=== PATIENT | female | born 2000 | race African-American/Black ===

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

== ENCOUNTER 2019-05-04 01:02 | Emergency (ER) | payer BC ==
[~2019-05-04] VITALS: Ht 172.7 cm; Wt 88.5 kg
--- NOTE | 2019-05-04 01:18 | NUR ---
PT BIB MOM. AAOX4. AMBULATORY. PT C/O CHEST PAIN SHARP 12/12. PER PATIENT "I FEEL ANXIOUS" PT PLACED ON PRINCIPAL CONSULTANT AND PULSE OX. BREATHING EVEN AND UNLABORED. NO ACUTE DISTRESS NOTED.
--- NOTE | 2019-05-04 01:36 | NUR ---
PT IN BED CONNECTED TO CONTINIOUS MONITOR AND PULSE OX. CHEST PAIN LEVEL 0/10.
--- NOTE | 2019-05-04 02:01 | NUR ---
Patient discharged to home in stable condition. Written and verbal after care instructions given. Patient verbalizes understanding of instruction. PT ambulatory with a steady gait.
[2019-05-04 02:02] VITALS: BP 142/62
== END 2019-05-04 02:10 | disposition home or self-care (01) ==
LOC: ER 01:06
DX: F41.9 Anxiety disorder, unspecified (principal); J45.909 Unspecified asthma, uncomplicated; Z79.899 Other long term (current) drug therapy

== ENCOUNTER 2019-05-23 09:12 | Emergency (ER) | payer BC ==
[~2019-05-23] VITALS: Ht 172.7 cm; Wt 88.9 kg
--- NOTE | 2019-05-23 09:20 | NUR ---
bibmother, c/o chest sharp pain since yesterday non radiating, cough x 4 days. Patient a/ox4, breathing even and unlabored, no sob noted, needs attended. Dr. Jones at bedside for eval. Patient changed into gown, and attached to the classroom monitor.
--- NOTE | 2019-05-23 09:40 | NUR ---
SENIOR PHP SOFTWARE DEVELOPER AT BEDSIDE FOR XRAY.
[2019-05-23 10:16] VITALS: BP 147/90
--- NOTE | 2019-05-23 10:16 | NUR ---
Patient discharged to home in stable condition. Written and verbal after care instructions given. Patient verbalizes understanding of instruction.
== END 2019-05-23 10:16 | disposition home or self-care (01) ==
LOC: ER 09:16
DX: R07.89 Other chest pain (principal); J45.909 Unspecified asthma, uncomplicated; F41.9 Anxiety disorder, unspecified; Z79.899 Other long term (current) drug therapy
CPT/HCPCS: 71045-TC

== ENCOUNTER 2019-09-21 21:03 | Emergency (ER) | payer BC ==
[~2019-09-21] VITALS: Ht 172.7 cm; Wt 88.5 kg
[2019-09-21 21:07] VITALS: BP 153/80
== END 2019-09-21 21:46 | disposition home or self-care (01) ==
LOC: ER 21:03
DX: J06.9 Acute upper respiratory infection, unspecified (principal); J45.909 Unspecified asthma, uncomplicated; F41.9 Anxiety disorder, unspecified; Z79.899 Other long term (current) drug therapy

== ENCOUNTER 2022-01-30 12:14 | Emergency (ER) | payer BC ==
[~2022-01-30] VITALS: Ht 177.8 cm; Wt 95.3 kg
[2022-01-30 12:33] VITALS: BP 147/73
== END 2022-01-30 13:51 | disposition home or self-care (01) ==
LOC: ER 12:36
DX: R11.2 Nausea with vomiting, unspecified (principal); R19.7 Diarrhea, unspecified; J45.909 Unspecified asthma, uncomplicated; F41.9 Anxiety disorder, unspecified; F17.200 Nicotine dependence, unspecified, uncomplicated; Z79.899 Other long term (current) drug therapy
CPT/HCPCS: 84703-TC

== ENCOUNTER 2022-06-13 12:14 | Emergency (ER) | payer BC ==
[~2022-06-13] VITALS: Ht 172.7 cm; Wt 97.5 kg
--- NOTE | 2022-06-13 12:35 | NUR ---
BIBS C/O CONGESTION X 4DAYS. AMBULATORY, PLACED ON BED, BREATHING EVEN AND UNLABORED.
--- NOTE | 2022-06-13 12:47 | NUR ---
SWAB FOR COVID19 AND RAPID INFLUENZA SENT TO LAB.
--- NOTE | 2022-06-13 12:59 | NUR ---
RT CALLED FOR BREATHING TX
[2022-06-13] MEDS ORDERED: ALBUTEROL FS 2.5 MG/3 ML VIAL.NEB NEB ONE (13:00)
[2022-06-13] MEDS ORDERED: ALBUTEROL FS 2.5 MG/3 ML VIAL.NEB ONE (13:09)
--- NOTE | 2022-06-13 13:09 | NUR ---
RT AT BEDSIDE FOR BREATHING TX
[2022-06-13] MEDS ORDERED: ALBU18HF2 INH (13:40)
--- NOTE | 2022-06-13 14:06 | NUR ---
Patient discharged to home in stable condition. Written and verbal after care instructions given. Patient verbalizes understanding of instruction.
[2022-06-13 14:08] VITALS: BP 138/84
== END 2022-06-13 14:05 | disposition home or self-care (01) ==
LOC: ER 12:17
DX: J06.9 Acute upper respiratory infection, unspecified (principal); B97.89 Other viral agents as the cause of diseases classified elsewhere; J45.909 Unspecified asthma, uncomplicated; Z20.822 Contact with and (suspected) exposure to COVID-19; F41.9 Anxiety disorder, unspecified; R03.0 Elevated blood-pressure reading, without diagnosis of hypertension
CPT/HCPCS: 99284; 71045; 87426; 87804; 94640; C9803

== ENCOUNTER 2022-07-28 19:20 | Emergency (ER) | payer BC ==
[~2022-07-28] VITALS: Ht 172.7 cm; Wt 99.8 kg
[~2022-07-28 19:20] MED LIST changes: +ALBU18HF2 INH
[2022-07-28 19:45] VITALS: BP 148/91
[2022-07-28] MEDS ORDERED: ALBU8.5H8 INH (20:11)
[2022-07-28] MEDS ORDERED: IBUP-1953 PO (20:11)
--- NOTE | 2022-07-28 20:17 | NUR ---
SWAB FOR COVID19 SENT TO LAB
--- NOTE | 2022-07-28 20:27 | NUR ---
Patient discharged to home in stable condition. Written and verbal after care instructions given. Patient verbalizes understanding of instruction. Pt ambulatory with a steady gait
== END 2022-07-28 20:28 | disposition home or self-care (01) ==
LOC: ER 19:23
DX: J06.9 Acute upper respiratory infection, unspecified (principal); B97.89 Other viral agents as the cause of diseases classified elsewhere; Z20.822 Contact with and (suspected) exposure to COVID-19; J45.909 Unspecified asthma, uncomplicated; R03.0 Elevated blood-pressure reading, without diagnosis of hypertension
CPT/HCPCS: 99283; 87426; C9803

== ENCOUNTER 2022-08-26 09:15 | Emergency (ER) | payer BC ==
[~2022-08-26] VITALS: Ht 172.7 cm; Wt 97.5 kg
[~2022-08-26 09:15] MED LIST changes: +ALBU8.5H8 INH; +IBUP-1953 PO
--- NOTE | 2022-08-26 09:30 | NUR ---
COUGH AND CONGESTION X 5 DAYS, CHEST TIGHNESS,SOB X 2 DAYS. LUNG SOUNDS CLEAR ON ALL WERNER ON AUSCULTATION. PT AMBULATED TO BED WITH STEADY GAIT. VSS. AAOX4. AWAITING MD ORDERS. SAFETY PRECAUTIONS IN PLACE.
--- NOTE | 2022-08-26 09:42 | NUR ---
PA AT BEDSIDE
[2022-08-26] MEDS ORDERED: IPRATROPIUM NEB FS 0.5 MG/2.5 ML AMPUL.NEB NEB ONE (10:00)
[2022-08-26] MEDS ORDERED: predniSONE 20 MG TABLET PO ONE (10:00)
[2022-08-26] MEDS ORDERED: ALBUTEROL FS 2.5 MG/3 ML VIAL.NEB CONTNEB ONE (10:00)
[2022-08-26] MEDS ORDERED: predniSONE 20 MG TABLET ONE (10:08)
--- NOTE | 2022-08-26 10:16 | NUR ---
COVID AND FLU SWAB TAKEN AND SENT TO LAB
[2022-08-26] MEDS ORDERED: IPRATROPIUM NEB FS 0.5 MG/2.5 ML AMPUL.NEB ONE (10:50)
[2022-08-26] MEDS ORDERED: ALBUTEROL FS 2.5 MG/3 ML VIAL.NEB ONE (10:50)
--- NOTE | 2022-08-26 10:54 | NUR ---
RT AT BEDSIDE
[2022-08-26] MEDS ORDERED: PRED20TA PO (11:39)
[2022-08-26] MEDS ORDERED: ALBU18HF2 INH (11:39)
[2022-08-26 11:53] VITALS: BP 128/88
--- NOTE | 2022-08-26 11:53 | NUR ---
Patient discharged to home in stable condition. Written and verbal after care instructions given. Patient verbalizes understanding of instruction.
== END 2022-08-26 11:53 | disposition home or self-care (01) ==
LOC: ER 09:21
DX: J06.9 Acute upper respiratory infection, unspecified (principal); R05.9 Cough, unspecified; Z20.822 Contact with and (suspected) exposure to COVID-19; F17.200 Nicotine dependence, unspecified, uncomplicated; Z79.899 Other long term (current) drug therapy
CPT/HCPCS: 99285; 87426; 87804 ×2; 94644; J7512; C9803

== ENCOUNTER 2023-05-18 17:14 | Emergency (ER) | payer BC ==
[~2023-05-18] VITALS: Ht 172.7 cm; Wt 106.1 kg
[~2023-05-18 17:14] MED LIST changes: +PRED20TA PO
[2023-05-18] MEDS ORDERED: PRED20TA PO (19:49)
[2023-05-18 19:59] VITALS: BP 134/81; TEMP 98.1; O2SAT 98
== END 2023-05-18 20:00 | disposition home or self-care (01) ==
LOC: ER 17:27
DX: R06.02 Shortness of breath (principal); J45.909 Unspecified asthma, uncomplicated; Z79.51 Long term (current) use of inhaled steroids; Z79.899 Other long term (current) drug therapy; Z20.822 Contact with and (suspected) exposure to COVID-19
CPT/HCPCS: 99284; 71045; 87426; 87804 ×2; C9803

== ENCOUNTER 2023-09-13 18:28 | Emergency (ER) | payer BC, MEDICAID ==
[~2023-09-13] VITALS: Ht 172.7 cm; Wt 95.3 kg
[2023-09-13] MEDS: predniSONE 20 MG TABLET PO ONE (18:50)
[2023-09-13] MEDS ORDERED: predniSONE 20 MG TABLET ONE (18:51)
[2023-09-13] MEDS: IPRATROPIUM NEB FS 0.5 MG/2.5 ML AMPUL.NEB NEB ONE (19:05)
[2023-09-13] MEDS: ALBUTEROL FS 2.5 MG/3 ML VIAL.NEB NEB ONE (19:05)
[2023-09-13] MEDS ORDERED: ALBUTEROL FS 2.5 MG/3 ML VIAL.NEB ONE (19:08)
[2023-09-13] MEDS ORDERED: IPRATROPIUM NEB FS 0.5 MG/2.5 ML AMPUL.NEB ONE (19:08)
[2023-09-13 19:10] VITALS: O2SAT 95
[2023-09-13 19:25] VITALS: O2SAT 96
[2023-09-13] MEDS ORDERED: ALBU2.5V13 NEB (20:50)
[2023-09-13] MEDS ORDERED: PRED20TA PO (20:50)
[2023-09-13] MEDS ORDERED: ALBU18HF2 INH (20:50)
[2023-09-13 20:59] VITALS: BP 133/78; TEMP 97; O2SAT 98
== END 2023-09-13 21:00 | disposition home or self-care (01) ==
LOC: ER 18:32
DX: J45.909 Unspecified asthma, uncomplicated (principal); J06.9 Acute upper respiratory infection, unspecified; Z87.891 Personal history of nicotine dependence; Z79.899 Other long term (current) drug therapy; Z20.822 Contact with and (suspected) exposure to COVID-19
CPT/HCPCS: 99285; 71045; 87426; 87804 ×2; 94640; J7512

== ENCOUNTER 2023-11-07 17:14 | Emergency (ER) | payer BC ==
[~2023-11-07] VITALS: Ht 172.7 cm; Wt 95.3 kg
[~2023-11-07 17:14] MED LIST changes: +ALBU2.5V13 NEB
[2023-11-07 17:24] VITALS: TEMP 98.3
[2023-11-07] MEDS ORDERED: GUAIFENESIN/D-METHORPHAN HB 5 ML UDC ONE (18:11)
[2023-11-07] MEDS ORDERED: predniSONE 20 MG TABLET ONE (18:12)
[2023-11-07] MEDS: predniSONE 20 MG TABLET PO ONE (18:15)
[2023-11-07] MEDS: GUAIFENESIN/D-METHORPHAN HB 5 ML UDC PO ONE (18:15)
[2023-11-07] MEDS ORDERED: ALBUTEROL FS 2.5 MG/3 ML VIAL.NEB ONE (18:19)
[2023-11-07] MEDS ORDERED: IPRATROPIUM NEB FS 0.5 MG/2.5 ML AMPUL.NEB ONE (18:19)
[2023-11-07 18:23] VITALS: O2SAT 96
[2023-11-07] MEDS: IPRATROPIUM NEB FS 0.5 MG/2.5 ML AMPUL.NEB NEB ONE (18:23)
[2023-11-07] MEDS: ALBUTEROL FS 2.5 MG/3 ML VIAL.NEB NEB ONE (18:23)
[2023-11-07 18:39] VITALS: O2SAT 100
[2023-11-07] MEDS ORDERED: PRED50TA PO (19:27)
[2023-11-07] MEDS ORDERED: AZIT500T4 PO (19:27)
[2023-11-07] MEDS ORDERED: GUAI1TBM19 PO (19:27)
[2023-11-07] MEDS ORDERED: ALBU18HF2 INH (19:27)
[2023-11-07 19:55] VITALS: BP 130/89; O2SAT 100
== END 2023-11-07 19:50 | disposition home or self-care (01) ==
LOC: ER 17:14
DX: J45.909 Unspecified asthma, uncomplicated (principal); F10.10 Alcohol abuse, uncomplicated; F19.10 Other psychoactive substance abuse, uncomplicated; F17.200 Nicotine dependence, unspecified, uncomplicated; Y90.9 Presence of alcohol in blood, level not specified
CPT/HCPCS: 99283; 94799; 94640; J7512

== ENCOUNTER 2024-06-12 19:03 | Emergency (ER) | payer BC ==
[~2024-06-12] VITALS: Ht 172.7 cm; Wt 97.5 kg
[~2024-06-12 19:03] MED LIST changes: +AZIT500T4 PO; +GUAI1TBM19 PO; +PRED50TA PO
[2024-06-12 22:20] VITALS: TEMP 97.9
[2024-06-12 22:39] VITALS: BP 121/100; O2SAT 95
[2024-06-12] MEDS ORDERED: ALBU2.5V38 NEB (22:50)
[2024-06-12] MEDS ORDERED: ALBU18HF2 INH (22:50)
== END 2024-06-12 23:01 | disposition home or self-care (01) ==
LOC: ER 19:05
DX: J45.901 Unspecified asthma with (acute) exacerbation (principal); B97.89 Other viral agents as the cause of diseases classified elsewhere; F17.200 Nicotine dependence, unspecified, uncomplicated; Z76.0 Encounter for issue of repeat prescription; Z79.51 Long term (current) use of inhaled steroids; Z79.52 Long term (current) use of systemic steroids